=== PATIENT | male | born 1985 | race African-American/Black ===

== ENCOUNTER 2016-07-06 06:47 | Emergency (ER) | payer SELFPAY ==
--- NOTE | 2016-07-06 07:10 | EDM.PDOC ---
ED HPI LOWER BACK PAIN/INJURY - General Chief Complaint: Back Pain or Injury Stated Complaint: BACK PAIN Time Seen by Provider: 07/06/16 07:09 Source of Information: Reports: Patient History Limitations: Reports: No limitations - History of Present Illness INITIAL COMMENTS - FREE TEXT/NARRATIVE: 30-year-old male presents to the ED with diffuse low back and buttock pain. No known injuries. He is a long-distance concrete mixer loader truck mounted. States over the last 3 days she's developed gradually increasing pain primarily in the left side of his buttock no nuchal cleft. Can barely sit. He sitting primarily on one cheek when he drives. No fever or chills. The pain stays primarily in the [place]. It does not radiate down the posterior aspect of either leg. Symptom Onset Date: 07/03/16 Timing/Duration: Reports: Hour(s):, Gradual onset Location: Reports: other ([place] pain) Quality: Reports: Ache, Dull, Pressure Severity: severe Place of Occurrence: other (No known injuries.) Improves with: Reports: Rest (But the throbbing pain is keeping him from ability to sleep.) Worsens with: Reports: Other (Sitting), Movement Context: Denies: lifting, bending, fall, MVC, trauma, chronic pain/injury, sports injury, other Associated Symptoms: Denies: Chest pain, Constipation, Cough, Diaphoresis, Difficulty walking, Fever/chills, Headache, Loss of appetite, Malaise, Nausea/ vomiting, Paresthesias, Problems urinating, Rash, Seizure, Shortness of breath, Syncope, Weakness, Other - Related Data Allergies/ADRs: Allergies Allergy/AdvReac Type Severity Reaction Status Date / Time peanut Allergy Airway Verified 07/06/16 07:38 Tightness Home Meds: Home Meds Ciprofloxacin HCl [Cipro] 500 mg PO BID #16 tablet 07/06/16 [Rx] Doxycycline [Vibramycin] 100 mg PO Q12HR #24 cap 07/06/16 [Rx] oxyCODONE HCl/Acetaminophen [Percocet 5-325 mg Tablet] 1 - 2 each PO Q4H PRN # 16 tablet 07/06/16 [Rx] Social & Family History - Living Situation & Occupation Occupation: employed (Currently working for [employer].) ED ROS GENERAL - Review of Systems Review Of Systems: See Below Constitutional: Denies: fever, chills, malaise, weakness, fatigue, decreased appetite, weight loss HEENT: Reports: Eye discharge Respiratory: Reports: No Symptoms Cardiovascular: Reports: No symptoms Endocrine: Reports: no symptoms GI/Abdominal: Reports: No symptoms, Mucous in stool Musculoskeletal: Reports: other (Pain throughout his buttock region in the distribution of both SI joints worse on the left as compared to the right. Pain is medial to the SI joint closer to the nuchal cleft.) Skin: Reports: other (Pain in the left nuchal cleft.) Neurological: Reports: No Symptoms Psychiatric: Reports: No symptoms ED EXAM,LOWER BACK PAIN/INJURY - Physical Exam Exam: See Below Exam Limited By: No limitations General Appearance: alert, WD/WN, moderate distress (Walks very slowly and prefers to stand or even sit.) Respiratory/Chest: no respiratory distress, lungs clear, normal breath sounds, no accessory muscle use Cardiovascular: normal peripheral pulses, regular rate, rhythm, no edema, no gallop, no murmur GI/Abdominal: normal bowel sounds, soft, non tender, no organomegaly, no distention, no abnormal bruit, no mass (Male) Exam: No hernia Rectal (Males) Exam: Normal exam, Other (No perirectal exam. HEENT is adjacent to the nuchal cleft without any pilonidal sinus es appreciated.) Back Exam: other (Pain throughout both) Extremities: normal inspection, normal range of motion, non-tender, no pedal edema, normal capillary refill ( lower parts of the sacroiliac joints and ischial tuberosities.) Neurological: alert, normal mood/affect, normal dorsiflexion, CN II-XII intact Psychiatric: normal affect, normal mood Skin Exam: Warm, Dry, Intact, Normal color, No rash Course - Vital Signs Last Recorded V/S: Last Vital Signs Temp 36.6 C 07/06/16 07:33 Pulse 79 07/06/16 07:33 Resp 16 07/06/16 07:33 BP 131/94 H 07/06/16 07:33 Pulse Ox 98 07/06/16 07:33 - Orders/Labs/Meds Orders: Active Orders 24 hr Category Date Time Status Pelvis 1V or 2V [CR] Stat Exams 07/06/16 07:46 Taken - Radiology Interpretation Free Text/Narrative:: 30-year-old male of descent presents the ED with diffuse buttock pain worse on the left as compared to the right. Gradually worsening over the last 3 days. Unable to able to localize pain to the both SI joints. There also appears to be pain and tenderness with slight swelling in the nuchal cleft on just the right of the midline superiorly. There is no evidence of perianal abscess. Pain is localized to both SI joints and ischial tuberosities. Most unusual presentation. Plan one view of the pelvis to be done. - Re-Assessments/Exams Free Text/Narrative Re-Assessment/Exam: 07/06/16 08:40 x-ray of the pelvis is normal. Reexamination the pain patient has pain in the deep structures adjacent to the nuchal cleft as a deep infection in the soft tissues appears to be occurring. There is no pointing or abscess. It is just significantly tender to touch on both sides of the nuchal cleft. A there are no pilonidal sinus is noted patient will be treated with antibiotics doxycycline 100 mg twice daily for 12 days Cipro 500 mg twice daily for 8 days and pain medication as needed. Departure - Departure Time of Disposition: 08:41 Disposition: Home, Self-Care 01 Condition: fair Clinical Impression: Pilonidal abscess Prescriptions: Doxycycline [Vibramycin] 100 mg PO Q12HR #24 cap Ciprofloxacin HCl [Cipro] 500 mg PO BID #16 tablet oxyCODONE HCl/Acetaminophen [Percocet 5-325 mg Tablet] 1 - 2 each PO Q4H PRN # 16 tablet PRN Reason: pain relief. Instructions: Abscess Referrals: PCP,Not In Area [Primary Care Provider] - Forms: Return to Work/School Form Additional Instructions: Evaluation and management today in regards to infection developing in the soft tissues of the Buttocks. Treatment is antibiotic Cipro 500 mg twice daily for the next 8 days and antibiotic doxycycline 100 mg twice daily for the next 12 days to clear up infection. Aleve 2 tablets every 8 hours as necessary to relieve pain and inflammation.Percocet tabs 5/325mg strength-- 1-2 tabs every 6hrs for pain not releived by Aleve alone. Expect marked improvment over the next 72hrs. If not better return to the ED. - My Orders Last 24 Hours: My Active Orders 07/06/16 07:46 Pelvis 1V or 2V [CR] Stat - Assessment/Plan Last 24 Hours: My Active Orders 07/06/16 07:46 Pelvis 1V or 2V [CR] Stat
[2016-07-06 07:37] VITALS: BP 131/94
--- NOTE | 2016-07-06 09:55 | CR ---
Pelvis: AP view of the pelvis was obtained. Comparison: No previous study. Joint spaces within both hips are maintained. Minimal sclerosis suggested to both sacroiliac joints. Sacroiliac joints are otherwise unremarkable. No acute fracture or other abnormality is appreciated. Impression: 1. Minimal nonspecific sclerosis suggested within both sacroiliac joints. 2. AP pelvis study is otherwise unremarkable. Diagnostic code #2
== END 2016-07-06 09:15 | disposition home or self-care (01) ==
LOC: JD.ED 06:47
DX: L05.01 Pilonidal cyst with abscess (principal); Z91.010 Allergy to peanuts
CPT/HCPCS: 72170; 72170-26; 99283